=== PATIENT | female | born 1945 | race Caucasian/White ===

== ENCOUNTER 2018-09-11 04:23 | Emergency (ER) | payer MEDICARE, OTHER ==
[2018-09-11] MEDS ORDERED: Acetaminophen/HYDROcodone 325-5 MG Tab ONE (05:00)
[2018-09-11] MEDS ORDERED: HYDROmorphone 2 MG/ML Syringe SUBCUT STA (05:20)
--- NOTE | 2018-09-11 08:21 | CR ---
Date of Service: 09/11/18 Clinical Data: deformity and pain LEFT WRIST: There is a comminuted, intra-articular, displaced fracture through the distal radius. There is dorsal displacement and angulation of the distal fragments with respect to the proximal. There is also a displaced fracture through the ulnar styloid. No other acute abnormalities. [id number] [facility]
--- NOTE | 2018-09-11 11:55 | ER ---
DATE OF SERVICE: 09/11/2018 REASON FOR EMERGENCY ROOM VISIT: Injured left wrist. HISTORY: This previously healthy 73-year-old woman came to the emergency room accompanied by her with a suspected left wrist injury. This morning, she was awakened rather abruptly by a nightmare and jumped out of bed. She fell to the ground and landed on her outstretched left hand, suffering a deformity and severe pain in the wrist area. PAST MEDICAL HISTORY: Reviewed and is unremarkable. She has only been hospitalized for 2 children. She has not had any major operations, except for hemorrhoid surgery. MEDICATIONS: Include levothyroxine 75 mcg p.o. daily. ALLERGIES: NONE TO MEDICATIONS. PHYSICAL EXAMINATION: She is holding her left arm close to her body, flexed at the elbow. She is somewhat uncomfortable. Her left wrist has a typical Colles' fracture type picture with a dinner fork deformity with dorsal angulation just proximal to the wrist. Distally, she has normal motor function, including flexion and extension of the fingers and abduction and adduction as well. Sensation is intact. Capillary refill is normal. She does have swelling just proximal to the wrist and tenderness obviously. IMAGING: X-rays reveal a distal radius fracture with some impaction and dorsal angulation of at least 30 degrees of the distal fragment. There does appear to be involvement of the joint itself. IMPRESSION: Left distal radius fracture. FURTHER EMERGENCY ROOM COURSE: Upon reviewing the x-rays, I spoke to Dr. Gudino , the orthopedic surgeon on-call at [facility], and we were able to review the films together. He felt that she should definitely have this reduced today, and this would require regional anesthetic. I felt it was best to send her to [facility] or to an orthopedist to have them attempt at a closed reduction. Dr. Gudino completely understood and agreed with this plan and advised that we send her down to the emergency room at [facility]. Upon discussing this with the patient and her , they felt adamant that they wanted to go ahead and drive back to [place] today, which is probably going to be about a 6-hour drive. I indicated to him I did not think that was optimal, but that it was acceptable. She seemed to be reasonably comfortable, having received 1 mg of Dilaudid subcu while in the emergency room. They apparently have a very close relationship with an orthopedic surgeon, Dr. Mikie Jackson, who works out of [facility] in [place], [place], as he has operated on Mrs. Ortiz's a number of times and they are also personal friends. We went ahead and applied a sugar-tong splint to immobilize her wrist fracture. This is secured in place with an Bronson wrap, and she was given a sling to maintain her arm in a comfortable position. After the application of the splint, she felt comfortable with this. She had no tingling or loss of sensation in her fingertips. Her capillary refill remained excellent. She was given a prescription for hydrocodone 5/325, dispensed #10, 1 -2 every 4 hours p.r.n. for pain. They are going to promptly drive back home to [place], and they feel comfortable that they can get in touch with Dr. Jackson, even en route, so that he could meet them at the hospital there. In fact, they have his personal cell phone number. I felt this is a reasonable arrangement. Certainly, if they have any questions or concerns, they can get in touch with us. Optimally, of course, I reiterated to them it would be better if she would go to [facility] [place] to have this done, but they would not hear of it. All questions were answered. FERNANDEZ /[id number] KIMBER
== END 2018-09-11 06:45 | disposition home or self-care (01) ==
LOC: LB.ED 04:23
DX: S52.502A Unspecified fracture of the lower end of left radius, initial encounter for closed fracture (principal); Z79.899 Other long term (current) drug therapy; W06.XXXA Fall from bed, initial encounter
CPT/HCPCS: 29125; 73110; 96372; 99283; A9270; J1170